=== PATIENT | male | born 1955 | race Caucasian/White ===

== ENCOUNTER 2024-08-15 12:18 | Emergency (ER) | payer OTHER, SELFPAY ==
[2024-08-15 12:26] VITALS: BP 154/91
--- NOTE | 2024-08-15 14:17 | ED.GENMED ---
History of Present Illness
General
Chief Complaint: Musculo-Skeletal Complaint
Source: patient
Exam Limitations: none
Time Seen by Provider: 08/15/24 14:05
Nursing documentation reviewed up to this point in time: agreed with
History of Present Illness
History of Present Illness:
Patient is a 69-year-old male who presents to the ER for evaluation. Patient reports he has had right leg swelling for the past 3 weeks. He reports this started in his right ankle however has gradually spread throughout his foot ankle and is now
going up his leg. Initially he saw urgent care who checked for gout and gave him an antibiotic for possible infection though his blood work was normal. He also saw his family doctor who ordered an outpatient ultrasound x-ray both of which were
negative. He reports swelling has become increasingly worse. He has been on his feet over the past 2 days for a family wedding and reports swelling has increased. He denies any numbness tingling. He denies any actual specific joint pain. He
denies any redness fever chills. He does not feel ill. No prior history of DVT PE. He is not short of breath
Review of Systems
Review of Systems
Allergies reviewed?: Yes
All Other Systems: ROS reviewed and negative except as documented in HPI and ROS
Phy Exam
General Physical Exam
General Presentation: no apparent distress
General age: appears stated age
General Skin: warm and dry
General Habitus: normal
General Mental: alert
General Hydration: appears well hydrated
Cardiovascular Exam
Cardiovascular Exam: regular rate/rhythm, no murmur and normal peripheral pulses
Pulmonary Exam
Pulmonary Exam: lungs clear and no respiratory distress
Neurological Exam
Neurological Exam: alert and oriented x3
Musculoskeletal Exam
Musculoskeletal Exam: other (Strong pulses to right lower extremity including strong femoral pulses strong distal PT DP pulses. Generalized swelling from the right foot to the ankle to the lower leg. No erythema no specific joint tenderness and
full ROM to ankle/knee )
Skin Exam
Skin Exam: normal color and warm/dry
Psychiatric Exam
Psychiatric Exam: normal mood/affect
Course
Orders/Labs/Results
Orders:
Orders
08/15/24 14:20
IV Insert/Care/Rem.- Treatment PRN
Venous Doppler Lwr Ext Rt [US Periph Venous LOWER Ext RT] Urgent
Comment:
Reason For Exam: swelling
08/15/24 15:30
CBC/With Diff [Complete Blood Count/With Diff] Urgent
Comprehensive Metabolic Panel Urgent
Abnormal Lab Results
08/15/24
15:30
RBC 4.35 L 10^6/uL
(4.70-6.10)
Hct 37.9 L %
(39.0-52.0)
Absolute Monos (auto) 0.7 H 10^3/uL
(0.1-0.6)
Monocytes % 9.8 H %
(1.7-9.3)
Chloride 109 H mmol/L
(98-107)
BUN 21 H mg/dl
(9-20)
Glucose 101 H mg/dl
(70-99)
08/15/24 15:30
08/15/24 15:30
Vital Signs
Initial and Last Documented VS:
Initial Vital Signs
Temp Pulse Resp BP Pulse Ox
98.1 F 74 18 154/91 97
08/15/24 12:26 08/15/24 12:26 08/15/24 12:08/15/24 12:08/15/24 12:26
Last Documented Vital Signs
Temp Pulse Resp BP Pulse Ox
98.1 F 74 18 154/91 97
08/15/24 12:26 08/15/24 12:08/15/24 12:08/15/24 12:08/15/24 14:20
Tin Flipper consulted with Physician
Tin Flipper consulted with physician?: Yes (Noh )
MDM/Problems Addressed
Differential Diagnosis Includes:
Not limited to DVT, edema
MDM/Problems Addressed:
Patient with dependent edema of right lower leg for the past several weeks no evidence of infection no shortness of breath strong pulses normal distal sensation. He denies any fever chills he is afebrile no acute distress not hypoxic lungs are
clear normal white count. US neg for DVT + edema noted on US.
He recent was at a wedding and did a lot of standing and dancing and over the past 2 days has had increasing swelling. He does have compression stockings at home but has not worn them. Case reviewed with ED physician will DC with elevation
compression stocking and refer to vascular.
*Radiology
Radiology exam reviewed: radiology read reviewed
*Pulse Oximetry
SaO2: 97
Patient hypoxic: no (97%ra )
*Critical Care Note
Total Time (30-74mins, 75-104mins- exclusive of procedures): Not Applicable
ED Attending Note
-
Portions of this chart may have been created with voice recognition software.� Occasional wrong word or��sound alike� substitutions may have occurred due to the inherent limitations of voice recognition software.
Discharge Plan
Departure
Patient Disposition: Home (Routine Discharge)
Date of Disposition: 08/15/24
Time of Disposition: 17:23
Patient with high blood pressure during this ER visit?: Yes
Condition: Fair
Covid-19: Not Applicable
Discharge Problem:
Leg edema, right
Instructions: Swelling, BLOOD PRESSURE
Referrals:
Moustapha Sierra III, MD [Active, Vascular Surgery]
Mick Helms MD [Family Provider, Family Practice]
Activity Restrictions/Additional Instructions:
As discussed please keep leg elevated as much as possible, wear compression stockings throughout the day remove them at night. Call vascular surgery tomorrow to make an appointment soon as possible. Return if any worsening of symptoms, if
increased pain numbness tingling or any further concerns .
Interventions
Interventions:
*General Assessment Last Done: 08/15/24 13:38
ED-Musculoskeletal Assessment Last Done: 08/15/24 13:38
Discharge Date and Time
Print Language: MONGOLIAN
[2024-08-15 15:42] LABS: % Basophils 0.6 % (0-2); % Eosinophils 2.2 % (0-6); % Immature Granulocytes 0.3 % (0-0.5); % Lymphocytes 24.2 % (20.5-51.1); % Monocytes 9.8 % (1.7-9.3); % Neutrophils 62.9 % (42.2-75.2); Absolute Eosinophils 0.2 10^3/uL (0-0.7); Absolute Lymphocytes 1.6 10^3/uL (1.2-3.4); Absolute Monocytes 0.7 10^3/uL (0.1-0.6); Absolute Neutrophils 4.2 10^3/uL (1.4-6.5); Hematocrit 37.9 % (39.0-52.0); Hemoglobin 13.1 g/dL (13.0-18.0); Mean Corp Hgb Conc. 34.6 g/dL (33.0-37.0); Mean Corpuscular Hgb 30.1 pg (27.0-31.0); Mean Corpuscular Volume 87.1 fL (80.0-94.0); Mean Platelet Volume 9.9 fL (7.4-10.4); Nucleated Red Blood Cells % 0 % (-); Platelet Count 180 10^3/uL (130-400); Red Blood Cell Count 4.35 10^6/uL (4.70-6.10); Red Cell Dist. Width 12.6 % (11.5-14.5); White Blood Cell Count 6.7 10^3/uL (4.8-10.8)
[2024-08-15 16:02] LABS: ALT (SGPT) 19 U/L (0-50); AST (SGOT) 19 U/L (17-59); Albumin 4.3 g/dl (3.5-5.0); Alkaline Phosphatase 62 U/L (38-126); Blood Urea Nitrogen 21 mg/dl (9-20); Carbon Dioxide 28 mmol/L (22-30); Chloride 109 mmol/L (98-107); Glucose 101 mg/dl (70-99); Sodium 141 mmol/L (135-145); Total Bilirubin 0.6 mg/dl (0.2-1.3); Total Protein 6.6 g/dl (6.3-8.2); eGFR > 60.00
[2024-08-15 16:44] LABS: Potassium 4.3 mmol/L (3.5-5.1)
== END 2024-08-15 18:04 | disposition home or self-care (01) ==
LOC: EMR 12:18
PROVIDERS: Nurse Practitioner; EMERGENCY PHYSICIAN Emergency Medicine; FAMILY PHYSICIAN Family Medicine
DX: R60.0 Localized edema (principal)
CPT/HCPCS: 99284; 80053; 85025; 93971